=== PATIENT | female | born 1945 | race Caucasian/White ===

== ENCOUNTER 2016-12-29 15:31 | Emergency (ER) | payer MEDICARE ==
[~2016-12-29] VITALS: Ht 167.6 cm; Wt 136.3 kg
[~2016-12-29 15:31] MED LIST: ALAVERT10 MG PO; ALLOPURINOL300 MG PO; ASPIRIN LOW81 M1 PO; BUPROPION150 M1 OR; BUPROPION150 MG PO; C-PAP IN; CELEXA20 MG PO; COLPROBENEMID500 MG PO; DILAUDID 2MG2 MG/TA1 PO; EMBRACE XX; FLONASE SPRAY50 MC1; FLUARIX QUADRIV1 IN1 IM; FLUZONE1 M1 IM; FUROSEMIDE40 MG PO; GLIPIZIDE10 MG PO; GLUCOTROL10 MG PO; HUMULIN 70/30 SC; HYDROCHLOROT25 MG PO; HYZAAR1 TA2 PO; INSULIN SY0.5 MG/32 SC; K-DUR/KLOR-CON20 MEQ PO; KLOR-CON M1010 MEQ PO; LANTUS100 MG/ML; LEXAPRO10 MG PO; LEXAPRO20 MG PO; LOPRESSOR25 MG PO; LOPRESSOR50 M1 PO; LORTAB 5/3255 MG PO; LORTAB5 PO; LOSARTAN POT100 MG PO; LOSARTAN POTASS50 MG PO; LOVASTATIN20 M1 OR; MEDDOSEPAK PO; METFORMIN1000 MG PO; MICRO-K10 ME1 PO; MICRO-K10 MEQ PO; MITIGARE0.6 MG PO; MOBIC7.5 M1 PO; NAPROXEN375 MG PO; NEBULIZE2 IN; NEURONTIN300 MG PO; NEURONTIN600 MG PO; NOVOLIN 70/30 SC; NOVOLO1 SC; NOVOLOG FLEXPEN SC; NOVOLOG MIX SC; NOVOLOG100 IU/1 M SC; OMEPRAZOLE20 MG PO; PNEUMOVAX 23 IM; PROAIR HFA IN; SYNTHROID75 MCG OR; SYNTHROID75 MCG PO; TRAMADOL HCL50 MG PO; VERAPAMIL80 MG OR; ZOLPIDEM10 MG PO; ZPAK PO; [UNRECOGNIZED DRUG - REMARK] PO
[2016-12-29] MEDS ORDERED: TRAMADOL HCL50 MG PO (16:13)
[2016-12-29] MEDS ORDERED: GABAPENTIN100 MG PO (16:14)
[2016-12-29] MEDS ORDERED: DUONEB IN (16:15)
[2016-12-29 16:17] LABS: HEMATOCRIT 37.7 % (37.0-47.0); HEMOGLOBIN 12.1 g/dl (12.0-16.0); IMMATURE GRANULOCYTES 0.5 % (0.0-1.0); MEAN CELL VOLUME 93.5 fL CALC (80.0-100.0); MEAN CORPUSCULAR HGB CONC 32.1 g/L CALC (32.0-36.0); NEUT# 8.11 thou/uL (2.00-7.15); RED BLOOD COUNT 4.03 mill/uL (4.20-5.60); RED CELL DISTRI WIDTH 14.2 % (11.5-15.5)
[2016-12-29 16:39] LABS: ALKALINE PHOSPHATASE 105 u/l (38-126); ANION GAP 15 (6-22 (CALC)); BILIRUBIN, TOTAL 0.5 mg/dL (0.0-1.4); BUN 11 mg/dL (8-23); BUN/CREATININE RATIO 11 (12-20 (CALC)); CALCIUM 9.2 mg/dL (8.4-10.2); CARBON DIOXIDE 28 mmol/l (22-30); CHLORIDE 102 mmol/l (95-108); GFR 55 ML/MIN (>=60 (CALC)); GFR FOR AFR.AMER. > 60 ML/MIN (>=60 (CALC)); GLUCOSE 159 mg/dL (82-115); POTASSIUM 4.4 mmol/l (3.5-5.1); SGOT/AST 33 u/l (9-36); SGPT/ALT 34 u/l (11-66); SODIUM 140 mmol/l (137-146); TOTAL PROTEIN 7.5 g/dL (6.3-8.2)
[2016-12-29 16:51] LABS: MYOGLOBIN 40 ng/mL (0 - 62)
[2016-12-29] MEDS ORDERED: NAPROSYN500 MG PO (18:44)
[2016-12-29 18:47] VITALS: BP 158/64
== END 2016-12-29 19:13 | disposition home or self-care (01) ==
LOC: ED 15:31 → ED-I 18:30 → ED 19:13
PROVIDERS: Emergency Medicine
DX: M25.551 Pain in right hip (principal); R06.02 Shortness of breath; I10 Essential (primary) hypertension; K21.9 Gastro-esophageal reflux disease without esophagitis

== ENCOUNTER 2017-01-27 11:50 | Emergency (ER) | payer MEDICARE ==
[~2017-01-27] VITALS: Ht 167.6 cm; Wt 150.0 kg
[~2017-01-27 11:50] MED LIST changes: +DUONEB IN; +GABAPENTIN100 MG PO; +NAPROSYN500 MG PO
[2017-01-27] MEDS ORDERED: LASIX 40 MG TAB40 MG PO (12:11)
[2017-01-27] MEDS ORDERED: HUMULIN 70/30 SC (12:11)
[2017-01-27] MEDS ORDERED: DICLOFENAC SODI75 MG PO (12:13)
[2017-01-27 13:13] VITALS: BP 156/65
[2017-01-27] MEDS ORDERED: FLEXERIL PO (13:16)
== END 2017-01-27 13:28 | disposition home or self-care (01) ==
LOC: ED 11:50
DX: S80.01XA Contusion of right knee, initial encounter (principal); M25.461 Effusion, right knee; S80.211A Abrasion, right knee, initial encounter; W17.81XA Fall down embankment (hill), initial encounter; Y93.89 Activity, other specified; Y92.414 Local residential or business street as the place of occurrence of the external cause

== ENCOUNTER 2017-05-04 13:00 | Emergency (ER) | payer MEDICARE ==
[~2017-05-04] VITALS: Ht 167.6 cm; Wt 140.0 kg
[~2017-05-04 13:00] MED LIST changes: +DICLOFENAC SODI75 MG PO; +FLEXERIL PO; +LASIX 40 MG TAB40 MG PO
[2017-05-04] MEDS ORDERED: BACTRIM DS1 TAB PO (13:54)
[2017-05-04] MEDS ORDERED: CEPHALEXIN500 M1 PO (13:54)
[2017-05-04 14:08] VITALS: BP 156/80
== END 2017-05-04 14:23 | disposition home or self-care (01) ==
LOC: ED 13:00
DX: E11.628 Type 2 diabetes mellitus with other skin complications (principal); L03.031 Cellulitis of right toe; E11.42 Type 2 diabetes mellitus with diabetic polyneuropathy; I11.0 Hypertensive heart disease with heart failure; I50.9 Heart failure, unspecified; K21.9 Gastro-esophageal reflux disease without esophagitis; F32.9 Major depressive disorder, single episode, unspecified; F41.9 Anxiety disorder, unspecified; M19.90 Unspecified osteoarthritis, unspecified site; J44.9 Chronic obstructive pulmonary disease, unspecified; M10.9 Gout, unspecified; Z79.4 Long term (current) use of insulin

== ENCOUNTER 2017-06-12 12:22 | Inpatient (IN) | payer MEDICARE ==
[~2017-06-12] VITALS: Ht 167.6 cm; Wt 141.2 kg
[~2017-06-12 12:22] MED LIST changes: +BACTRIM DS1 TAB PO; +CEPHALEXIN500 M1 PO
[2017-06-12 12:35] VITALS: BP 165/67
[2017-06-12 13:34] LABS: HEMATOCRIT 39.6 % (37.0-47.0); HEMOGLOBIN 13.5 g/dl (12.0-16.0); IMMATURE GRANULOCYTES 0.3 % (0.0-1.0); MEAN CELL VOLUME 91.7 fL CALC (80.0-100.0); MEAN CORPUSCULAR HGB 31.3 pG CALC (26.0-32.0); MEAN CORPUSCULAR HGB CONC 34.1 g/L CALC (32.0-36.0); NEUT# 4.48 thou/uL (2.00-7.15); RED BLOOD COUNT 4.32 mill/uL (4.20-5.60); RED CELL DISTRI WIDTH 13.2 % (11.5-15.5)
[2017-06-12 13:52] LABS: ANION GAP 18 (6-22 (CALC)); BUN 10 mg/dL (8-23); BUN/CREATININE RATIO 11 (12-20 (CALC)); CALCIUM 9.3 mg/dL (8.4-10.2); CARBON DIOXIDE 26 mmol/l (22-30); CHLORIDE 101 mmol/l (95-108); GFR 55 ML/MIN (>=60 (CALC)); GFR FOR AFR.AMER. > 60 ML/MIN (>=60 (CALC)); GLUCOSE 318 mg/dL (82-115); POTASSIUM 3.3 mmol/l (3.5-5.1); SODIUM 142 mmol/l (137-146)
[2017-06-12 15:08] VITALS: BP 149/57
[2017-06-12 16:01] LABS: URINE BLOOD DIPSTICK NEGATIVE (NEGATIVE); URINE GLUCOSE - DIPSTICK 250 mg/dL (NEGATIVE); URINE KETONE TRACE mg/dL (NEGATIVE); URINE NITRITE - DIPSTICK NEGATIVE (Negative); URINE PH 5.5 (4.5-8.0); URINE PROTEIN - DIPSTICK 30 mg/dL (NEG-TRACE); URINE SPECIFIC GRAVITY 1.025; URINE UROBILINOGEN - DIPSTICK 0.2 E.U./dL (0.2)
[2017-06-12 16:14] LABS: URINE BILIRUBIN - DIPSTICK SMALL (NEGATIVE)
[2017-06-12 16:15] LABS: URINE CLARITY CLOUDY; URINE COLOR DK. YELLOW
[2017-06-12 16:25] LABS: URINE LEUK ESTERASE TRACE (Negative)
[2017-06-12 16:26] LABS: URINE BACTERIA MANY hpf; URINE SQUAMOUS EPITHELIAL CELL MANY EPI/hpf (0-FEW)
[2017-06-12 19:19] VITALS: BP 157/67
[2017-06-13 00:23] VITALS: BP 137/50
[2017-06-13 04:06] VITALS: BP 135/53
[2017-06-13 06:51] LABS: HEMATOCRIT 35.4 % (37.0-47.0); HEMOGLOBIN 11.8 g/dl (12.0-16.0); IMMATURE GRANULOCYTES 0.3 % (0.0-1.0); MEAN CELL VOLUME 93.2 fL CALC (80.0-100.0); MEAN CORPUSCULAR HGB 31.1 pG CALC (26.0-32.0); MEAN CORPUSCULAR HGB CONC 33.3 g/L CALC (32.0-36.0); NEUT# 2.96 thou/uL (2.00-7.15); RED BLOOD COUNT 3.8 mill/uL (4.20-5.60); RED CELL DISTRI WIDTH 13.3 % (11.5-15.5)
[2017-06-13 07:12] LABS: ALBUMIN 3.4 g/dL (3.2-5.0); ALKALINE PHOSPHATASE 83 u/l (38-126); ANION GAP 14 (6-22 (CALC)); BILIRUBIN, TOTAL 0.5 mg/dL (0.0-1.4); BUN 10 mg/dL (8-23); BUN/CREATININE RATIO 13 (12-20 (CALC)); CALCIUM 8.4 mg/dL (8.4-10.2); CARBON DIOXIDE 27 mmol/l (22-30); CHLORIDE 105 mmol/l (95-108); CREATININE 0.8 mg/dL (0.5-1.0); GFR > 60 ML/MIN (>=60 (CALC)); GFR FOR AFR.AMER. > 60 ML/MIN (>=60 (CALC)); GLUCOSE 230 mg/dL (82-115); POTASSIUM 3.3 mmol/l (3.5-5.1); SGOT/AST 14 u/l (9-36); SGPT/ALT 32 u/l (11-66); SODIUM 143 mmol/l (137-146)
[2017-06-13 08:02] VITALS: BP 164/69
[2017-06-13 11:01] VITALS: BP 141/64
[2017-06-13 15:30] VITALS: BP 130/59
[2017-06-13 19:07] VITALS: BP 145/67
[2017-06-14] VITALS: BP 145/48
[2017-06-14 06:14] LABS: HEMATOCRIT 34.9 % (37.0-47.0); HEMOGLOBIN 11.7 g/dl (12.0-16.0); IMMATURE GRANULOCYTES 0.4 % (0.0-1.0); MEAN CELL VOLUME 93.3 fL CALC (80.0-100.0); MEAN CORPUSCULAR HGB 31.3 pG CALC (26.0-32.0); MEAN CORPUSCULAR HGB CONC 33.5 g/L CALC (32.0-36.0); NEUT# 3.47 thou/uL (2.00-7.15); RED BLOOD COUNT 3.74 mill/uL (4.20-5.60); RED CELL DISTRI WIDTH 13.4 % (11.5-15.5)
[2017-06-14 06:21] LABS: ALBUMIN 3.4 g/dL (3.2-5.0); ALKALINE PHOSPHATASE 71 u/l (38-126); ANION GAP 13 (6-22 (CALC)); BILIRUBIN, TOTAL 0.4 mg/dL (0.0-1.4); BUN 9 mg/dL (8-23); BUN/CREATININE RATIO 12 (12-20 (CALC)); CARBON DIOXIDE 30 mmol/l (22-30); CHLORIDE 105 mmol/l (95-108); CREATININE 0.8 mg/dL (0.5-1.0); GFR > 60 ML/MIN (>=60 (CALC)); GFR FOR AFR.AMER. > 60 ML/MIN (>=60 (CALC)); GLUCOSE 82 mg/dL (82-115); POTASSIUM 3.3 mmol/l (3.5-5.1); SGOT/AST 15 u/l (9-36); SGPT/ALT 28 u/l (11-66); SODIUM 144 mmol/l (137-146); TOTAL PROTEIN 5.9 g/dL (6.3-8.2)
[2017-06-14 08:09] VITALS: BP 184/77
[2017-06-14] MEDS ORDERED: LEVAQUIN750 MG PO (09:30)
[2017-06-14 10:35] VITALS: BP 142/73
== END 2017-06-14 11:07 | disposition home or self-care (01) | DRG 191 ==
LOC: MS2 12:22
PROVIDERS: ADMIT Internal Medicine Geriatric Medicine; ATTEND Internal Medicine Geriatric Medicine
DX: J44.0 Chronic obstructive pulmonary disease with (acute) lower respiratory infection (principal); I50.32 Chronic diastolic (congestive) heart failure; E11.9 Type 2 diabetes mellitus without complications; I11.0 Hypertensive heart disease with heart failure; J20.9 Acute bronchitis, unspecified; J44.1 Chronic obstructive pulmonary disease with (acute) exacerbation; E86.0 Dehydration; E66.01 Morbid (severe) obesity due to excess calories; I25.10 Atherosclerotic heart disease of native coronary artery without angina pectoris; E78.5 Hyperlipidemia, unspecified; M19.90 Unspecified osteoarthritis, unspecified site; K21.9 Gastro-esophageal reflux disease without esophagitis; E03.9 Hypothyroidism, unspecified; G47.33 Obstructive sleep apnea (adult) (pediatric); F41.9 Anxiety disorder, unspecified; F32.9 Major depressive disorder, single episode, unspecified; Z87.11 Personal history of peptic ulcer disease

== ENCOUNTER 2018-06-27 17:02 | Observation (INO) | payer MEDICARE ==
[~2018-06-27] VITALS: Ht 167.6 cm; Wt 142.1 kg
[~2018-06-27 17:02] MED LIST changes: +LEVAQUIN750 MG PO
[2018-06-27 17:37] LABS: HEMATOCRIT 40.6 % (37.0-47.0); IMMATURE GRANULOCYTES 0.5 % (0.0-5.0); MEAN CELL VOLUME 88.3 fL CALC (80.0-100.0); MEAN CORPUSCULAR HGB 30.7 pG CALC (26.0-32.0); MEAN CORPUSCULAR HGB CONC 34.7 g/L CALC (32.0-36.0); NEUT# 8.19 thou/uL (2.00-7.15); RED BLOOD COUNT 4.6 mill/uL (4.20-5.60); RED CELL DISTRI WIDTH 13.6 % (11.5-15.5)
[2018-06-27 17:38] LABS: HEMOGLOBIN 14.1 g/dl (12.0-16.0)
[2018-06-27 18:01] LABS: ALBUMIN 4.4 g/dL (3.2-5.0); BILIRUBIN, TOTAL 0.9 mg/dL (0.0-1.4); CREATININE 1.4 mg/dL (0.5-1.0); TOTAL PROTEIN 7.7 g/dL (6.3-8.2)
[2018-06-27 18:02] LABS: POTASSIUM 2.9 mmol/l (3.5-5.1)
[2018-06-27 19:15] VITALS: BP 169/49
[2018-06-28 00:20] VITALS: BP 136/61
[2018-06-28 04:00] VITALS: BP 108/61
[2018-06-28 04:36] LABS: HEMATOCRIT 36.6 % (37.0-47.0); HEMOGLOBIN 12.4 g/dl (12.0-16.0); IMMATURE GRANULOCYTES 0.6 % (0.0-5.0); MEAN CELL VOLUME 90.6 fL CALC (80.0-100.0); MEAN CORPUSCULAR HGB 30.7 pG CALC (26.0-32.0); MEAN CORPUSCULAR HGB CONC 33.9 g/L CALC (32.0-36.0); NEUT# 6.86 thou/uL (2.00-7.15); RED BLOOD COUNT 4.04 mill/uL (4.20-5.60); RED CELL DISTRI WIDTH 13.6 % (11.5-15.5)
[2018-06-28 05:02] LABS: ALBUMIN 3.7 g/dL (3.2-5.0); BILIRUBIN, TOTAL 0.7 mg/dL (0.0-1.4); CHOLESTEROL HDL RATIO 4.1 (<4.4 (CALC)); CREATININE 1.4 mg/dL (0.5-1.0); TOTAL PROTEIN 6.7 g/dL (6.3-8.2)
[2018-06-28 06:21] LABS: URINE BILIRUBIN - DIPSTICK NEGATIVE (NEGATIVE); URINE BLOOD DIPSTICK NEGATIVE (NEGATIVE); URINE COLOR YELLOW; URINE GLUCOSE - DIPSTICK NEGATIVE (NEGATIVE); URINE KETONE NEGATIVE (NEGATIVE); URINE LEUK ESTERASE NEGATIVE (NEGATIVE); URINE NITRITE - DIPSTICK NEGATIVE (Negative); URINE PH 5.5 (4.5-8.0); URINE PROTEIN - DIPSTICK NEGATIVE (NEG-TRACE); URINE SPECIFIC GRAVITY 1.015; URINE UROBILINOGEN - DIPSTICK 0.2 E.U./dL (0.2)
[2018-06-28 06:22] LABS: URINE CLARITY CLEAR
[2018-06-28 08:29] VITALS: BP 141/67
[2018-06-28 11:00] VITALS: BP 114/50
[2018-06-28 15:39] VITALS: BP 120/53
[2018-06-28 16:43] LABS: CREATININE 1.3 mg/dL (0.5-1.0); POTASSIUM 3.4 mmol/l (3.5-5.1)
[2018-06-28 20:11] VITALS: BP 140/65
[2018-06-29 00:45] VITALS: BP 111/50
[2018-06-29 04:00] VITALS: BP 110/52
[2018-06-29 05:33] LABS: HEMATOCRIT 34.1 % (37.0-47.0); HEMOGLOBIN 11.5 g/dl (12.0-16.0); IMMATURE GRANULOCYTES 0.5 % (0.0-5.0); MEAN CELL VOLUME 92.2 fL CALC (80.0-100.0); MEAN CORPUSCULAR HGB 31.1 pG CALC (26.0-32.0); MEAN CORPUSCULAR HGB CONC 33.7 g/L CALC (32.0-36.0); NEUT# 4.16 thou/uL (2.00-7.15); RED BLOOD COUNT 3.7 mill/uL (4.20-5.60); RED CELL DISTRI WIDTH 13.6 % (11.5-15.5)
[2018-06-29 05:39] LABS: CREATININE 1.2 mg/dL (0.5-1.0); POTASSIUM 3.9 mmol/l (3.5-5.1)
[2018-06-29 08:44] VITALS: BP 135/60
[2018-06-29] MEDS ORDERED: DICLOFENAC SODI75 MG PO (08:47)
[2018-06-29 08:48] VITALS: BP 135/60
== END 2018-06-29 10:10 | disposition home or self-care (01) ==
LOC: ED 17:02 → ED-I 18:07 → ED 18:21 → MS2 18:22
PROVIDERS: Family Medicine; ADMIT Internal Medicine Geriatric Medicine; ATTEND Internal Medicine Geriatric Medicine
DX: E87.6 Hypokalemia (principal); T50.3X6A Underdosing of electrolytic, caloric and water-balance agents, initial encounter; R11.2 Nausea with vomiting, unspecified; E11.42 Type 2 diabetes mellitus with diabetic polyneuropathy; I11.0 Hypertensive heart disease with heart failure; I50.33 Acute on chronic diastolic (congestive) heart failure; I25.10 Atherosclerotic heart disease of native coronary artery without angina pectoris; E66.01 Morbid (severe) obesity due to excess calories; Z68.42 Body mass index [BMI] 45.0-49.9, adult; F32.9 Major depressive disorder, single episode, unspecified; F41.1 Generalized anxiety disorder; E78.5 Hyperlipidemia, unspecified; E03.9 Hypothyroidism, unspecified; M19.90 Unspecified osteoarthritis, unspecified site; G47.33 Obstructive sleep apnea (adult) (pediatric); Z91.128 Patient's intentional underdosing of medication regimen for other reason; Z79.4 Long term (current) use of insulin

== ENCOUNTER 2019-08-05 06:38 | Day surgery (SDC) | payer MEDICARE ==
[~2019-08-05] VITALS: Ht 167.6 cm; Wt 136.1 kg
[~2019-08-05 06:38] MED LIST changes: +PROVENTIL0.083 % IN
[2019-08-05 09:21] VITALS: BP 153/67
== END 2019-08-05 09:43 | disposition home or self-care (01) ==
LOC: ORM 06:38
PROVIDERS: ATTEND Internal Medicine Gastroenterology
PROC: 0DBL8ZX Excision of Transverse Colon, Via Natural or Artificial Opening Endoscopic, Diagnostic (ICD-10-PCS; principal; 2019-08-05)
PROC: 0DBP8ZX Excision of Rectum, Via Natural or Artificial Opening Endoscopic, Diagnostic (ICD-10-PCS; 2019-08-05)
PROC: 0DBN8ZX Excision of Sigmoid Colon, Via Natural or Artificial Opening Endoscopic, Diagnostic (ICD-10-PCS; 2019-08-05)
PROC: 0DB78ZX Excision of Stomach, Pylorus, Via Natural or Artificial Opening Endoscopic, Diagnostic (ICD-10-PCS; 2019-08-05)
DX: Z12.11 Encounter for screening for malignant neoplasm of colon (principal); D12.3 Benign neoplasm of transverse colon; D12.7 Benign neoplasm of rectosigmoid junction; K57.30 Diverticulosis of large intestine without perforation or abscess without bleeding; K62.1 Rectal polyp; K64.8 Other hemorrhoids; K64.4 Residual hemorrhoidal skin tags; K63.5 Polyp of colon; K29.50 Unspecified chronic gastritis without bleeding; K21.9 Gastro-esophageal reflux disease without esophagitis; D13.0 Benign neoplasm of esophagus; I85.00 Esophageal varices without bleeding; K31.7 Polyp of stomach and duodenum; I10 Essential (primary) hypertension; E11.9 Type 2 diabetes mellitus without complications; J44.9 Chronic obstructive pulmonary disease, unspecified; Z80.0 Family history of malignant neoplasm of digestive organs; Z79.899 Other long term (current) drug therapy

== ENCOUNTER 2019-11-07 | Emergency (ER) | payer MEDICARE ==
[2019-11-07 14:51] LABS: HEMATOCRIT 35.4 % (37.0-47.0); HEMOGLOBIN 11.5 g/dl (12.0-16.0); IMMATURE GRANULOCYTES 0.5 % (0.0-5.0); MEAN CELL VOLUME 93.9 fL CALC (80.0-100.0); MEAN CORPUSCULAR HGB 30.5 pG CALC (26.0-32.0); MEAN CORPUSCULAR HGB CONC 32.5 g/L CALC (32.0-36.0); NEUT# 6.79 thou/uL (2.00-7.15); RED BLOOD COUNT 3.77 mill/uL (4.20-5.60); RED CELL DISTRI WIDTH 14.3 % (11.5-15.5)
[2019-11-07 15:05] LABS: ALBUMIN 3.8 g/dL (3.2-5.0); ALKALINE PHOSPHATASE 105 u/l (38-126); ANION GAP 11 (6-22 (CALC)); BILIRUBIN, TOTAL 0.6 mg/dL (0.0-1.4); BUN 6 mg/dL (8-23); BUN/CREATININE RATIO 8 (12-20 (CALC)); CARBON DIOXIDE 27 mmol/l (22-30); CHLORIDE 103 mmol/l (95-108); CREATININE 0.8 mg/dL (0.5-1.0); GFR > 60 ML/MIN (>=60 (CALC)); GFR FOR AFR.AMER. > 60 ML/MIN (>=60 (CALC)); POTASSIUM 3.7 mmol/l (3.5-5.1); SGOT/AST 18 u/l (9-36); SODIUM 138 mmol/l (137-146); TOTAL PROTEIN 6.9 g/dL (6.3-8.2)
[2019-11-07 15:17] LABS: MYOGLOBIN 38 ng/mL (0 - 62)
[2019-11-07] MEDS ORDERED: ACTOS30 MG PO (15:35)
[2019-11-07] MEDS ORDERED: ALLOPURINOL300 MG PO (15:35)
[2019-11-07] MEDS ORDERED: DICLOFENAC SODIUM1 % TOP (15:36)
[2019-11-07] MEDS ORDERED: MECLIZINE25 MG PO (15:37)
[2019-11-07] MEDS ORDERED: FISH OIL1000 MG PO (15:37)
[2019-11-07] MEDS ORDERED: TEMAZEPAM30 MG PO (15:38)
[2019-11-07] MEDS ORDERED: METFORMIN1000 MG PO (15:38)
[2019-11-07] MEDS ORDERED: TRAMADOL HYDROC50 MG PO (15:39)
[2019-11-07] MEDS ORDERED: TIZANIDINE HCL4 M1 PO (15:39)
[2019-11-07 15:44] LABS: URINE BILIRUBIN - DIPSTICK NEGATIVE (NEGATIVE); URINE BLOOD DIPSTICK NEGATIVE (NEGATIVE); URINE COLOR YELLOW; URINE GLUCOSE - DIPSTICK NEGATIVE (NEGATIVE); URINE KETONE NEGATIVE (NEGATIVE); URINE LEUK ESTERASE NEGATIVE (NEGATIVE); URINE NITRITE - DIPSTICK NEGATIVE (Negative); URINE PH 6.5 (4.5-8.0); URINE PROTEIN - DIPSTICK NEGATIVE (NEG-TRACE); URINE SPECIFIC GRAVITY 1.015; URINE UROBILINOGEN - DIPSTICK 0.2 E.U./dL (0.2)
[2019-11-07] MEDS ORDERED: MEDDOSEPAK PO (15:47)
== END 2019-11-07 16:36 | disposition home or self-care (01) ==
DX: I11.0 Hypertensive heart disease with heart failure (principal); I50.9 Heart failure, unspecified; J44.1 Chronic obstructive pulmonary disease with (acute) exacerbation; E11.9 Type 2 diabetes mellitus without complications; E66.01 Morbid (severe) obesity due to excess calories; Z79.4 Long term (current) use of insulin

== ENCOUNTER 2019-11-08 22:14 | Observation (INO) | payer MEDICARE ==
[~2019-11-08] VITALS: Ht 167.6 cm; Wt 136.8 kg
[~2019-11-08 22:14] MED LIST changes: +ACTOS30 MG PO; +DICLOFENAC SODIUM1 % TOP; +FISH OIL1000 MG PO; +MECLIZINE25 MG PO; +TEMAZEPAM30 MG PO; +TIZANIDINE HCL4 M1 PO; +TRAMADOL HYDROC50 MG PO
--- NOTE | 2019-11-08 23:09 | NUR ---
PT STATES HAVING INCREASED CHEST PAIN MIDSTERNAL AFTER AMBULATION. 8/10 ON NUMERIC PAIN SCALE. 02 SAT 97% ON RA PT BREATHING SLIGHTLY LABORED AT THIS TIME. Maxine NOTIFIED.
--- NOTE | 2019-11-08 23:09 | NUR ---
PT BLOOD WORK AND URINE SENT TO LAB
[2019-11-08 23:15] LABS: HEMATOCRIT 31.8 % (37.0-47.0); HEMOGLOBIN 10.3 g/dl (12.0-16.0); IMMATURE GRANULOCYTES 1.4 % (0.0-5.0); MEAN CELL VOLUME 94.1 fL CALC (80.0-100.0); MEAN CORPUSCULAR HGB 30.5 pG CALC (26.0-32.0); MEAN CORPUSCULAR HGB CONC 32.4 g/L CALC (32.0-36.0); NEUT# 10.24 thou/uL (2.00-7.15); RED BLOOD COUNT 3.38 mill/uL (4.20-5.60); RED CELL DISTRI WIDTH 14.3 % (11.5-15.5)
[2019-11-08 23:18] LABS: URINE BILIRUBIN - DIPSTICK NEGATIVE (NEGATIVE); URINE BLOOD DIPSTICK TRACE-INTACT (NEGATIVE); URINE COLOR YELLOW; URINE GLUCOSE - DIPSTICK >=1000 mg/dL (NEGATIVE); URINE KETONE NEGATIVE (NEGATIVE); URINE LEUK ESTERASE NEGATIVE (NEGATIVE); URINE NITRITE - DIPSTICK NEGATIVE (Negative); URINE PROTEIN - DIPSTICK NEGATIVE (NEG-TRACE); URINE UROBILINOGEN - DIPSTICK 0.2 E.U./dL (0.2)
[2019-11-08 23:26] LABS: PROTHROMBIN TIME 10.2 SECONDS (9.0-12.5)
[2019-11-08 23:29] LABS: ALBUMIN 3.7 g/dL (3.2-5.0); ALKALINE PHOSPHATASE 100 u/l (38-126); ANION GAP 15 (6-22 (CALC)); BILIRUBIN, TOTAL 0.4 mg/dL (0.0-1.4); BUN 17 mg/dL (8-23); BUN/CREATININE RATIO 16 (12-20 (CALC)); CARBON DIOXIDE 27 mmol/l (22-30); CHLORIDE 98 mmol/l (95-108); GFR 54 ML/MIN (>=60 (CALC)); GFR FOR AFR.AMER. > 60 ML/MIN (>=60 (CALC)); LIPASE 40 u/l (23-300); POTASSIUM 3.9 mmol/l (3.5-5.1); SGOT/AST 19 u/l (9-36); SODIUM 136 mmol/l (137-146); TOTAL PROTEIN 6.4 g/dL (6.3-8.2)
[2019-11-08 23:40] LABS: MYOGLOBIN 287 ng/mL (0 - 62)
[2019-11-09] VITALS (7 sets, daily range): BP systolic 124–161; BP diastolic 51–68
--- NOTE | 2019-11-09 01:51 | NUR ---
PT ADMITTED INTO ROOM 288, REPORT GIVEN TO TATIANA OAKES. PT STABLE 18G IN LEFT AC PLACED BY EMS PRIOR TO ARRIVAL. PT HAS NO S/S OF ANY ACUTE DISTRESS NOTED AT THIS TIME. [facility]
--- NOTE | 2019-11-09 02:00 | NUR ---
REPORT RECEIVED FROM ED NURSE. REPORTED PT'S BP @172/74, PULLEY MAN OVERHEARD ED NURSE ASK ED PHYSICIAN IF HE WANTED TO TREAT THIS ELEVATED BP, PHYSICIAN REPLIED NO DUE TO PT HAVING NITRO-PASTE ON AT THIS TIME. WILL REEVALUATE WHEN PT ARRIVES TO FLOOR. AND IN ONE HOUR PER PHYSICIANS ORDERS.
--- NOTE | 2019-11-09 02:10 | NUR ---
PT ARRIVED TO MED SURG UNIT VIA STRETCHER ACCOMPANIED BY ED NURSE. PT APPEARS TO BE IN STABLE CONDITION AND SELF AMBULATED TO SCALE AND BED. NO S/O DISTRESS. PT ASSESSMENT COMPLETED AT THIS TIME AND PT POSITIONED FOR COMFORT. ICEWATER PROVIDED, PT DENIES ANY SNACK, BUT IS ASKING FOR SLEEPING PILL. V/S 150/58,HR69 95% RA. PT DENIES CHEST PAIN AT THIS TIME DENIES SOB AT THIS TIME.
--- NOTE | 2019-11-09 03:10 | NUR ---
PT SLEEPING, AWOKE TO MY ENTERING ROOM. ED CALLED TO REPORT FACULTY MEMBER NOT COMING IN. ADJUSTED MONITOR AND CALLED ED TO CONFIRM CONTACT READINGS. PT DENIED ANY NEEDS. CALL LIGHT AT SIDE.
--- NOTE | 2019-11-09 03:20 | NUR ---
PT ASLEEP IN BED W/LIGHTS OUT, GIRLFRIEND IN BED W/PT. NO S\O DISTRESS NOTED.
--- NOTE | 2019-11-09 03:32 | NUR ---
LAB AT BEDSIDE.
--- NOTE | 2019-11-09 05:34 | NUR ---
PT SLEEPING AT THIS TIME. V/S ASSESSED, PT DENIES ANY OTHER NEEDS.
--- NOTE | 2019-11-09 07:30 | NUR ---
REPORT RECEIVED FROM CHAMP SIMPSON. PT RESTING IN BED SUPINE POSITIONED WITH PILLOWS WITH CPAP ON AND EYES CLOSED; AWAKENS SPONTANEOUSLY. ORIENTED X 3. DENIES PAIN. RESPIRATIONS EVEN AND UNLABORED; SPO2 95% WITH CPAP ON. LUNGS ARE CLEAR; 1+EDEMA TO BLE. PLAN OF CARE REVIEWED. PT ENCOURAGED TO VERBALIZE CONCERNS. STATES UNDERSTANDING. SAFETY MEASURES IN PLACE. CALL LIGHT WITHIN REACH.
--- NOTE | 2019-11-09 09:54 | NUR ---
SAT UP ON EDGE OF BED TO TAKE PO MEDICATIONS; AMBULATED TO BATHROOM WITH CANE.
[2019-11-09 11:19] LABS: CHOLESTEROL HDL RATIO 3.3 (<4.4 (CALC)); MAGNESIUM 1.6 mg/dL (1.6-2.3)
[2019-11-09 12:56] LABS: HEMATOCRIT 30.4 % (37.0-47.0); HEMOGLOBIN 9.9 g/dl (12.0-16.0); MEAN CELL VOLUME 94.4 fL CALC (80.0-100.0); MEAN CORPUSCULAR HGB 30.7 pG CALC (26.0-32.0); MEAN CORPUSCULAR HGB CONC 32.6 g/L CALC (32.0-36.0); RED BLOOD COUNT 3.22 mill/uL (4.20-5.60); RED CELL DISTRI WIDTH 14.3 % (11.5-15.5)
--- NOTE | 2019-11-09 14:27 | NUR ---
IV SITE DRESSING CHANGES; PT DECLINES EMS SITE REPLACEMENT DUE TO DIFFICULT IV ACCESS. CADDIE SUPERVISOR CALLED FOR HEART RATE DECREASING TO 47. PT IS ASYMPTOMATIC RESTING ON RIGHT SIDE. PT STATES THAT THIS HAPPENED LAST TIME SHE HAD LASIX. WILL CONTINUE TO MONITOR.
--- NOTE | 2019-11-09 15:03 | NUR ---
PT OFF UNIT VIA WHEELCHAIR WITH VOLUNTEER FOR ECHOCARDIOGRAM.
--- NOTE | 2019-11-09 15:33 | NUR ---
BACK TO UNIT IN STABLE CONDITION.
[2019-11-09] MEDS ORDERED: BYDUREON2 MG SC (16:12)
[2019-11-09] MEDS ORDERED: NOVOLIN 70/30 SC (16:13)
[2019-11-09 18:28] LABS: ANION GAP 12 (6-22 (CALC)); BUN 19 mg/dL (8-23); BUN/CREATININE RATIO 20 (12-20 (CALC)); CARBON DIOXIDE 28 mmol/l (22-30); CHLORIDE 100 mmol/l (95-108); CREATININE 0.9 mg/dL (0.5-1.0); GFR > 60 ML/MIN (>=60 (CALC)); GFR FOR AFR.AMER. > 60 ML/MIN (>=60 (CALC)); POTASSIUM 3.8 mmol/l (3.5-5.1); SODIUM 136 mmol/l (137-146)
--- NOTE | 2019-11-09 19:50 | NUR ---
PT SLEEPING W/CPAP ON. BED WAS UP HIGH OFF THE FLOOR SO I LOWERED BED, PT AWOKE TO MY MOVING BED. SHE DENIED ANY NEEDS AT THIS TIME. NO S/O DISTRESS NOTED. LIGHTS AND TV ARE OFF.
--- NOTE | 2019-11-09 23:40 | NUR ---
PT SLEEPING, AIDE IN W/PT OBTAINING V/S. NO S/O DISTRESS, CPAP ON PT.
--- NOTE | 2019-11-10 02:15 | NUR ---
PT SLEEPING W/CPAP ON . NO S/O DISTRESS NOTED. CALL LIGHT AT SIDE.
[2019-11-10 04:00] VITALS: BP 151/72
[2019-11-10 05:18] LABS: HEMATOCRIT 33.1 % (37.0-47.0); HEMOGLOBIN 10.7 g/dl (12.0-16.0); IMMATURE GRANULOCYTES 0.7 % (0.0-5.0); MEAN CELL VOLUME 94.6 fL CALC (80.0-100.0); MEAN CORPUSCULAR HGB 30.6 pG CALC (26.0-32.0); MEAN CORPUSCULAR HGB CONC 32.3 g/L CALC (32.0-36.0); NEUT# 7.46 thou/uL (2.00-7.15); RED BLOOD COUNT 3.5 mill/uL (4.20-5.60); RED CELL DISTRI WIDTH 14.1 % (11.5-15.5)
--- NOTE | 2019-11-10 05:20 | NUR ---
AIDE IN W/PT OBTAINING DAILY WEIGHT AT THIS TIME.
[2019-11-10 05:43] LABS: ANION GAP 13 (6-22 (CALC)); BUN 18 mg/dL (8-23); BUN/CREATININE RATIO 19 (12-20 (CALC)); CARBON DIOXIDE 28 mmol/l (22-30); CHLORIDE 99 mmol/l (95-108); CREATININE 0.9 mg/dL (0.5-1.0); GFR > 60 ML/MIN (>=60 (CALC)); GFR FOR AFR.AMER. > 60 ML/MIN (>=60 (CALC)); MAGNESIUM 1.8 mg/dL (1.6-2.3); POTASSIUM 3.9 mmol/l (3.5-5.1); SODIUM 136 mmol/l (137-146)
--- NOTE | 2019-11-10 07:15 | NUR ---
REPORT RECEIVED FROM CHAMP SIMPSON. PT ASLEEP ON LEFT SIDE WITH NO SIGNS OF DISTRESS; AWAKENS SPONTANEOUSLY. ORIENTED X 3. DENIES PAIN. RESPIRATIONS EVEN AND UNLABORED ON CPAP MACHINE. BLOOD PRESSURE 169/80 HR 51. TELE ON. LUNGS ARE CLEAR. INDEPENDENT TO BATHROOM. SAFETY MEASURES IN PLACE. CALL LIGHT WITHIN REACH.
[2019-11-10 08:00] VITALS: BP 169/80
--- NOTE | 2019-11-10 09:24 | NUR ---
IV FOUND DISLODGED AFTER SHOWER. PT WITH POOR VENOUS ACCESS.
[2019-11-10 11:03] VITALS: BP 150/54
--- NOTE | 2019-11-10 11:45 | NUR ---
MD AWARE OF NO VENOUS ACCESS. ALL MEDICATIONS SWITCHED TO PO.
[2019-11-10] MEDS ORDERED: MEDDOSEPAK PO ×2 (12:23)
[2019-11-10] MEDS ORDERED: LASIX 20 MG TAB20 MG PO (12:24)
[2019-11-10] MEDS ORDERED: ZITHROMAX250 MG PO (12:25)
[2019-11-10] MEDS ORDERED: MAG OXIDE400 MG PO ×2 (12:25)
--- NOTE | 2019-11-10 12:30 | NUR ---
DR. AUGUSTE AND JOHANNA VALENCIA AT BEDSIDE TO DISCUSS DISCHARGE.
--- NOTE | 2019-11-10 13:37 | NUR ---
Discharge instructions given. Patient verbalizes understanding of same. Discharged in stable condition via Wheelchair to Home with volunteer. All belongings sent with pt.
== END 2019-11-10 13:36 | disposition home or self-care (01) ==
LOC: ED 22:14 → ED-I 11-09 00:25 → ED 11-09 00:43 → MS2 11-09 00:44
PROVIDERS: Emergency Medicine; Nurse Practitioner Family; ADMIT Internal Medicine; ATTEND Internal Medicine
DX: I11.0 Hypertensive heart disease with heart failure (principal); I50.33 Acute on chronic diastolic (congestive) heart failure; J43.9 Emphysema, unspecified; R07.89 Other chest pain; E11.9 Type 2 diabetes mellitus without complications; Z68.43 Body mass index [BMI] 50.0-59.9, adult; E66.01 Morbid (severe) obesity due to excess calories; F41.1 Generalized anxiety disorder; G47.33 Obstructive sleep apnea (adult) (pediatric); E78.5 Hyperlipidemia, unspecified; M10.9 Gout, unspecified; Z79.4 Long term (current) use of insulin; Z87.891 Personal history of nicotine dependence
CPT/HCPCS: G0378; J1650

== ENCOUNTER 2020-03-02 15:33 | Emergency (ER) | payer MEDICARE ==
[~2020-03-02] VITALS: Ht 167.6 cm; Wt 150.0 kg
[~2020-03-02 15:33] MED LIST changes: +BYDUREON2 MG SC; +LASIX 20 MG TAB20 MG PO; +MAG OXIDE400 MG PO; +ZITHROMAX250 MG PO
[2020-03-02] MEDS ORDERED: FUROSEMIDE20 MG PO (16:14)
[2020-03-02] MEDS ORDERED: GLIPIZIDE ER5 MG PO (16:17)
[2020-03-02] MEDS ORDERED: CYCLOBENZAPR5 MG PO (16:59)
[2020-03-02 17:39] VITALS: BP 192/80
== END 2020-03-02 17:41 | disposition home or self-care (01) ==
LOC: ED 15:33
DX: M25.551 Pain in right hip (principal); J44.9 Chronic obstructive pulmonary disease, unspecified; E11.9 Type 2 diabetes mellitus without complications; I11.0 Hypertensive heart disease with heart failure; I50.9 Heart failure, unspecified; Z79.4 Long term (current) use of insulin

== ENCOUNTER 2020-10-03 12:25 | Emergency (ER) | payer MEDICARE ==
[~2020-10-03] VITALS: Ht 167.6 cm; Wt 100.0 kg
[~2020-10-03 12:25] MED LIST changes: +CYCLOBENZAPR5 MG PO; +FUROSEMIDE20 MG PO; +GLIPIZIDE ER5 MG PO
[2020-10-03 13:15] LABS: HEMATOCRIT 33.2 % (37.0-47.0); HEMOGLOBIN 10.6 g/dl (12.0-16.0); IMMATURE GRANULOCYTES 0.6 % (0.0-5.0); MEAN CELL VOLUME 93.3 fL CALC (80.0-100.0); MEAN CORPUSCULAR HGB 29.8 pG CALC (26.0-32.0); MEAN CORPUSCULAR HGB CONC 31.9 g/dL CAL (32.0-36.0); NEUT# 9.11 thou/uL (2.00-7.15); RED BLOOD COUNT 3.56 mill/uL (4.20-5.60)
[2020-10-03 13:35] LABS: ALBUMIN 3.8 g/dL (3.2-5.0); ALKALINE PHOSPHATASE 103 u/l (38-126); ANION GAP 13 (6-22 (CALC)); BUN 15 mg/dL (8-23); BUN/CREATININE RATIO 14 (12-20 (CALC)); CARBON DIOXIDE 26 mmol/l (22-30); CHLORIDE 100 mmol/l (95-108); CREATININE 1.1 mg/dL (0.5-1.0); GFR 49 ML/MIN (>=60 (CALC)); GFR FOR AFR.AMER. 59 ML/MIN (>=60 (CALC)); POTASSIUM 4.2 mmol/l (3.5-5.1); SGOT/AST 27 u/l (9-36); SODIUM 135 mmol/l (137-146); TOTAL PROTEIN 6.6 g/dL (6.3-8.2)
[2020-10-03 13:36] LABS: BILIRUBIN, TOTAL 0.8 mg/dL (0.0-1.4)
[2020-10-03] MEDS ORDERED: VENTOLIN HFA IN (13:53)
[2020-10-03] MEDS ORDERED: ALBUTEROL SUL0.083 % IN (13:53)
[2020-10-03] MEDS ORDERED: PREDNISONE20 MG PO (13:53)
[2020-10-03 14:27] VITALS: BP 153/77
== END 2020-10-03 14:45 | disposition home or self-care (01) ==
LOC: ED 12:25
PROVIDERS: Student in an Organized Health Care Education/Training Program
DX: J44.1 Chronic obstructive pulmonary disease with (acute) exacerbation (principal); I49.3 Ventricular premature depolarization; I11.0 Hypertensive heart disease with heart failure; I50.9 Heart failure, unspecified; E11.9 Type 2 diabetes mellitus without complications; K21.9 Gastro-esophageal reflux disease without esophagitis; F32.9 Major depressive disorder, single episode, unspecified; F41.9 Anxiety disorder, unspecified; M10.9 Gout, unspecified; G47.30 Sleep apnea, unspecified; Z79.4 Long term (current) use of insulin; Z20.822 Contact with and (suspected) exposure to COVID-19
CPT/HCPCS: J3475